=== PATIENT | male | born 2000 | race Caucasian/White ===

== ENCOUNTER 2023-03-30 18:27 | Emergency (ER) | payer OTHER, SELFPAY ==
[2023-03-30 18:35] VITALS: BP 145/75; PULSE 95; RESP 16; TEMP 37.6; O2SAT 97
--- NOTE | 2023-03-30 18:36 | ED.URI ---
HPI - URI/Sore Throat General Chief Complaint: Upper Respiratory Infection Stated Complaint: Sore Throat Time Seen by Provider: 03/30/23 18:36 Source: patient Mode of arrival: ambulatory Limitations: no limitations History of Present Illness HPI Narrative: 22-year-old male presents with complaint of fatigue, fevers, sore throat for approximately 10 days. [facility] at [facility] and given amoxicillin for pharyngitis. Reports that rapid strep test was negative and a culture was not sent. Has been taking amoxicillin for 5 days with no improvement to symptoms. denies nausea vomiting diarrhea. Reports intermittent headaches. States he has missed several days of work due to being sick. States he trace to go and then gets very fatigued and throat hurts and he has to leave early. All systems reviewed and negative except as noted above. Related Data Home Medications Medication Instructions Recorded Confirmed amoxicillin 500 mg capsule 500 mg PO BID 03/30/23 03/30/23 Allergies Allergy/AdvReac Type Severity Reaction Status Date / Time No Known Allergies Allergy Verified 03/30/23 18:30 Review of Systems Review of Systems: CONSTITUTIONAL: Reports fatigue, fever, chills, or sweats. EYES: Denies visual changes, redness, or discharge. ENT: Denies rhinorrhea, congestion. Reports sore throat. Denies otalgia. CARDIOVASCULAR: Denies chest pain, palpitations, or edema. RESPIRATORY: Denies cough or dyspnea. GASTROINTESTINAL: Denies abdominal pain, nausea, vomiting, or diarrhea. GENITOURINARY: Denies dysuria or hematuria. SKIN: Denies rash or itching. MUSCULOSKELETAL: Denies back pain, joint pain, or myalgia. NEUROLOGIC: reports headache. Denies numbness, or weakness. PSYCHIATRIC: Denies anxiety or depression. All other systems reviewed are negative, except as documented in HPI. PMFSH Comments At time of signature, agree with nursing past medical, surgical, social and family history. There is no relevant family history pertinent to the presenting complaint. Exam Narrative: GENERAL: This is a well-nourished, well-developed patient, in no apparent distress. HEAD: normocephalic, atraumatic. EYES: PERRL. Sclera clear/white. Vision is grossly intact. EARS: External ears normal, auditory canals clear and without drainage, TMs normal without perforation. Hearing grossly intact. NOSE: External nose normal with no obvious nasal discharge, nares without redness, no rhinorrhea. THROAT: Mucous membranes moist, erythema to posterior pharynx, tonsils 1+ bilaterally with exudates. NECK: Neck supple, tender with Anterior cervical lymphadenopathy. No masses or thyromegaly. CARDIOVASCULAR: Regular rate and rhythm without murmurs, gallops, or rubs. RESPIRATORY: Clear to auscultation. Breath sounds equal bilaterally. No wheezes, rales, or rhonchi. SKIN: warm, Dry, intact with no suspicious lesions or rash, good texture and turgor. NEURO: awake, alert, and oriented to person, place and time. There were no obvious focal neurologic abnormalities. EXTREMITIES: No joint tenderness, effusion, or edema noted. Course Course Level of Care: Express Care Visit Vital Signs Vital signs: Vital Signs Temperature 37.6 C 03/30/23 18:35 Pulse Rate 95 03/30/23 18:35 Respiratory Rate 16 03/30/23 18:35 Blood Pressure 145/75 H 03/30/23 18:35 Pulse Oximetry 97 03/30/23 18:35 Oxygen Delivery Room Air 03/30/23 18:35 Temperature 37.6 C 03/30/23 18:35 Pulse Rate 95 03/30/23 18:35 Respiratory Rate 16 03/30/23 18:35 Blood Pressure 145/75 H 03/30/23 18:35 Pulse Oximetry 97 03/30/23 18:35 Oxygen Delivery Room Air 03/30/23 18:35 reviewed MDM - URI/Sore Throat MDM Narrative Medical decision making narrative: Patient is aware of diagnosis, understands and agrees to treatment plan. Anticipatory guidance given. Patient agrees to follow-up as directed and is aware of reasons to seek care at
== END 2023-03-30 19:13 | disposition home or self-care (01) ==
PROVIDERS: Emergency Provider Nurse Practitioner Family; PCP Physician Assistant
DX: B27.90 Infectious mononucleosis, unspecified without complication (principal)
CPT/HCPCS: 36416; 86308; 99213; G0463